=== PATIENT | female | born 1940 | race Caucasian/White ===

== ENCOUNTER 2017-06-08 16:10 | Emergency (ER) | payer OTHER ==
[~2017-06-08] VITALS: Ht 152.4 cm; Wt 59.0 kg
--- NOTE | 2017-06-08 16:30 | NUR ---
[facility] FAMILY FOR ABD PAIN THAT STARTED AT 1000AM TODAY AFTER BREAKFAST WITH N/V, NO DIARRHEA. SEEN BY MD FOR EVAL. VSS. SAFETY AND COMFORT MEASURES PROVIDED. WILL MONITOR.
--- NOTE | 2017-06-08 17:05 | NUR ---
PT UNABLE TO TO URINATE AT THIS TIME.
--- NOTE | 2017-06-08 17:10 | NUR ---
IV ACCESS STARTED. BLOOD DRAWN FOR LABS. MEDICATED ORDERED.
[2017-06-08] MEDS ORDERED: ONDANSETRON HCL/PF 4 MG/2 ML VIAL ONE ×3 (17:14→21:48)
[2017-06-08] MEDS ORDERED: MORPHINE SULFATE INJ 4 MG/ML DISP.SYRIN ONE ×3 (17:14→21:49)
[2017-06-08 17:28] LABS: BASOPHILS # (AUTO) 0.3 /CMM (0.0-0.2); BASOPHILS % (AUTO) 1.9 % (0.0-2.0); EOSINOPHILS % (AUTO) 0.2 % (0.0-6.0); HEMATOCRIT 41 % (33-45); HEMOGLOBIN 14.2 g/dL (11.5-14.8); LYMPHOCYTES # (AUTO) 1.5 /CMM (0.8-4.8); LYMPHOCYTES % (AUTO) 8.8 % (20.0-44.0); MEAN CORPUSCULAR HEMOGLOBIN 32 PG (26.0-33.0); MEAN CORPUSCULAR HGB CONC 34 g/dl (31.0-36.0); MEAN CORPUSCULAR VOLUME 92 fL (82-100); MONOCYTES # (AUTO) 0.8 /CMM (0.1-1.30); MONOCYTES % (AUTO) 4.9 % (2.0-12.0); NEUTROPHILS # (AUTO) 14.1 /CMM (1.8-8.9); NEUTROPHILS % (AUTO) 84.2 % (43.0-81.0); PLATELET COUNT (AUTO) 359 /CMM (150-450); RDW COEFFICIENT OF VARIATION 11.7 (11.5-15.0); RED BLOOD CELL COUNT(AUTO) 4.49 MIL/uL (4.0-5.2); WHITE BLOOD COUNT (AUTO) 16.7 K/uL (4.3-11.0)
[2017-06-08] MEDS ORDERED: ONDANSETRON HCL/PF 4 MG/2 ML VIAL IVP ONE ×3 (17:30→22:00)
[2017-06-08] MEDS ORDERED: IV NS 0.9% 1,000 ML BAG IV ONE ×2 (17:30→22:00)
[2017-06-08] MEDS ORDERED: MORPHINE SULFATE INJ 2 MG/ML DISP.SYRIN IV ONE ×3 (17:30→22:00)
[2017-06-08 17:43] LABS: ALANINE AMINOTRANSFERASE 15 U/L (12-78); ALBUMIN 3.3 g/dL (3.4-5.0); ALKALINE PHOSPHATASE 94 U/L (46-116); ASPARTATE AMINOTRANSFERASE 17 U/L (15-37); BILIRUBIN,DIRECT 0.2 mg/dL (0.0-0.2); BILIRUBIN,TOTAL 0.7 mg/dL (0.2-1.0); CALCIUM, SERUM 9.6 mg/dL (8.5-10.1); CARBON DIOXIDE 27 mmol/L (21-32); CHLORIDE 98 mmol/L (98-107); CREATININE 1.1 mg/dL (0.6-1.3); GLUCOSE 297 mg/dL (74-106); LIPASE 70 U/L (73-393); POTASSIUM 4.7 mmol/L (3.5-5.1); SODIUM SERUM 136 mmol/L (136-145); TOTAL PROTEIN, SERUM 8.3 g/dL (6.4-8.2); UREA NITROGEN, BLOOD 24 mg/dL (7-18)
[2017-06-08 17:45] LABS: TROPONIN I < 0.017 ng/mL (0.00-0.056)
[2017-06-08 18:16] LABS: APPEARANCE,URINE Clear (CLEAR); BILIRUBIN,URINE Negative (NEGATIVE); BLOOD, URINE Negative Ery/uL (NEGATIVE); COLOR,URINE Yellow (YELLOW); KETONES,URINE 40 (NEGATIVE); LEUKOCYTE ESTERASE ,URINE Negative (NEGATIVE); NITRITE, URINE Negative (NEGATIVE); PH,URINE 6.5 (5.0-8.0); PROTEIN,URINE 30 mg/dl (NEGATIVE); UGLUCOSE 500 MG/DL mg/dL (NEGATIVE); UROBILINOGEN,URINE 0.2 EU/dL (0.2)
[2017-06-08 18:30] LABS: BACTERIA,URINE Few /HPF (None Seen); MUCUS,URINE Many /LPF (None Seen); RBC,URINE 0-2 /HPF (0-2); SQUAMOUS EPITHELIAL CELL,UR Few /HPF (None Seen); URINE AMORPHOUS URATE Few /HPF (None Seen)
--- NOTE | 2017-06-08 19:20 | NUR ---
PT MEDICATED ORDERED.
--- NOTE | 2017-06-08 19:20 | NUR ---
RECEIVED REPORT FROM SONYA KYLE FOR [facility].
--- NOTE | 2017-06-08 19:20 | NUR ---
REPORT GIVEN TO [facility] FOR [facility].
[2017-06-08] MEDS ORDERED: SIMV20TA6 PO (19:22)
[2017-06-08] MEDS ORDERED: ASPI-1169 PO (19:22)
[2017-06-08] MEDS ORDERED: RANI-551 PO (19:22)
--- NOTE | 2017-06-08 19:39 | NUR ---
[facility] - AWAITING CALL BACK
[2017-06-08] MEDS ORDERED: DIATR MEGLU/DIATRIZOATE SODIUM 30 ML BOTTLE (GASTROGRAPHIN) ONE (19:42)
--- NOTE | 2017-06-08 19:58 | NUR ---
PT DRANK THE CONTRAST AND THEN 600 ML WATER. PT VOMITTED APPROX 120ML AFTER DRINKING ALL OF THE WATER.
[2017-06-08] MEDS ORDERED: DIATR MEGLU/DIATRIZOATE SODIUM 30 ML BOTTLE (GASTROGRAPHIN) PO ONE (20:00)
--- NOTE | 2017-06-08 20:54 | NUR ---
PATIENT IS BEING TRANSFERRED TO [facility] - ACCEPTING DR IS DR. BERTRAND NUMBER FOR REPORT [phone] ALS RIG EN ROUTE WITH ETA [phone]
--- NOTE | 2017-06-08 21:19 | NUR ---
GAVE REPORT TO SONYA TAVAREZ FROM [facility].
--- NOTE | 2017-06-08 21:32 | NUR ---
Patient is resting comfortably in bed. VSS. No S/S of discomfort noted in pt.
[2017-06-08 22:07] VITALS: BP 163/86
--- NOTE | 2017-06-08 22:07 | NUR ---
TRANSPORT TEAM BEDSIDE FOR PT TRANSFER TO [facility] Patient Tranfers to outside Facility Physician: DR. BERTRAND Location:[facility] VSS UPON TRANSFER. NO S/S OF DISCOMFORT NOTED IN PT.
== END 2017-06-08 22:14 | disposition short-term general hospital (02) ==
LOC: ER 16:11
DX: N83.9 Noninflammatory disorder of ovary, fallopian tube and broad ligament, unspecified (principal); R10.84 Generalized abdominal pain; E11.9 Type 2 diabetes mellitus without complications; K57.30 Diverticulosis of large intestine without perforation or abscess without bleeding; K58.9 Irritable bowel syndrome, unspecified; Z79.82 Long term (current) use of aspirin
CPT/HCPCS: 36415; 71045-TC; 80048-TC; 80076-TC; 81000-TC; 83690-TC; 84484-TC; 85025-TC; A4606; J2270; J2405; J7030; Q9963; Z7610